=== PATIENT | male | born 1950 | race Caucasian/White ===

== ENCOUNTER 2019-01-09 05:51 | Day surgery (SDC) | payer MEDICARE ==
[~2019-01-09] VITALS: Ht 167.6 cm; Wt 75.9 kg
[~2019-01-09 05:51] MED LIST: AMLO5TAB4 PO; ATENOLOL; BENA20TA4 PO; DOCU-144 PO; HYDR-3498 PO; METO-429 PO; TAMSULOSIN
[2019-01-09 07:09] VITALS: Ht 167.6 cm; Wt 75.9 kg
[2019-01-09 07:25] VITALS: BP 166/86; PULSE 63; RESP 16
[2019-01-09] MEDS ORDERED: PROPOFOL 20 ML ONE ×2 (08:17→09:33)
[2019-01-09] MEDS ORDERED: FENTAnyl 50 MCG/ML VIAL ONE ×2 (08:17→08:45)
[2019-01-09 09:20] VITALS: BP 159/91; RESP 20
== END 2019-01-09 11:20 | disposition home or self-care (01) ==
LOC: GIL 05:51
PROVIDERS: ATTEND Internal Medicine Gastroenterology
DX: Z12.11 Encounter for screening for malignant neoplasm of colon (principal); K29.50 Unspecified chronic gastritis without bleeding; D12.0 Benign neoplasm of cecum; D12.8 Benign neoplasm of rectum; K29.80 Duodenitis without bleeding; I10 Essential (primary) hypertension
CPT/HCPCS: 88305; 88312; J3010